=== PATIENT | female | born 1995 | race Hispanic/Latino ===

== ENCOUNTER 2020-04-13 07:05 | Emergency (ER) | payer OTHER ==
[~2020-04-13] VITALS: Ht 152.4 cm; Wt 74.8 kg
[~2020-04-13 07:05] MED LIST: IBUPROFEN200 MG PO; Naproxen; Z.0.AMITRIPTYLINE H1
[2020-04-13] MEDS ORDERED: KETOROLAC TROMETHAMINE 60 MG/2 ML VIAL IM ONE (07:30)
[2020-04-13] MEDS ORDERED: KETOROLAC TROMETHAMINE 60 MG/2 ML VIAL ONE (07:39)
[2020-04-13] MEDS ORDERED: PREDNISONE 20 MG TAB PO ONE (08:00)
[2020-04-13] MEDS ORDERED: CYCLOBENZAPRINE5 MG PO (08:06)
[2020-04-13] MEDS ORDERED: PREDNISONE20 MG PO (08:06)
[2020-04-13] MEDS ORDERED: PREDNISONE 20 MG TAB ONE (08:17)
== END 2020-04-13 08:15 | disposition home or self-care (01) ==
LOC: FSED 07:30
DX: S30.0XXA Contusion of lower back and pelvis, initial encounter (principal); S39.012A Strain of muscle, fascia and tendon of lower back, initial encounter; W00.0XXA Fall on same level due to ice and snow, initial encounter; Y93.01 Activity, walking, marching and hiking; Y92.008 Other place in unspecified non-institutional (private) residence as the place of occurrence of the external cause
CPT/HCPCS: 72220; 99283; J1885; J7512

== ENCOUNTER 2020-12-18 08:04 | Emergency (ER) | payer OTHER ==
[~2020-12-18] VITALS: Ht 152.4 cm; Wt 79.4 kg
[~2020-12-18 08:04] MED LIST changes: +CYCLOBENZAPRINE5 MG PO; +PREDNISONE20 MG PO
[2020-12-18] MEDS ORDERED: SODIUM CHLORIDE 0.9% 1000ML 1,000 ML IV STA (08:12)
[2020-12-18] MEDS ORDERED: ACETAMINOPHEN 325 MG TAB PO ONE (08:15)
[2020-12-18] MEDS ORDERED: ONDANSETRON HCL INJ 2MG/ML 2ML 2 MG/ML VIAL IV ONE (08:15)
[2020-12-18] MEDS ORDERED: FAMOTIDINE 20 MG/2 ML VIAL IV ONE (08:15)
[2020-12-18] MEDS ORDERED: KETOROLAC TROMETHAMINE 30 MG/ML VIAL IV ONE (08:15)
[2020-12-18] MEDS ORDERED: DEXAMETHASONE 10MG/ML PF INJ IV ONE (08:15)
[2020-12-18] MEDS ORDERED: KETOROLAC TROMETHAMINE 30 MG/ML VIAL ONE (08:29)
[2020-12-18] MEDS ORDERED: ZOFRAN4 MG PO (08:29)
[2020-12-18] MEDS ORDERED: THERAFLU FLU &1 EAC1 PO (08:29)
[2020-12-18] MEDS ORDERED: CEFDINIR300 MG PO (08:29)
[2020-12-18] MEDS ORDERED: DEXAMETHASONE SOD PHOS INJ 4 MG/ML SDV ONE (08:29)
[2020-12-18] MEDS ORDERED: SODIUM CHLORIDE 0.9% 1000ML 1,000 ML ONE (08:29)
[2020-12-18] MEDS ORDERED: CEFTRIAXONE 1 GM VIAL ONE (08:30)
[2020-12-18] MEDS ORDERED: CEFTRIAXONE 1 GM in SODIUM CHLORIDE 0.9% 50ML 50 ML IV ONE (08:30)
[2020-12-18] MEDS ORDERED: CEFTRIAXONE 1 GM VIAL IV ONE (08:30)
== END 2020-12-18 09:25 | disposition home or self-care (01) ==
LOC: FSED 08:15
DX: R05.9 Cough, unspecified (principal); J02.9 Acute pharyngitis, unspecified; J06.9 Acute upper respiratory infection, unspecified; Z20.822 Contact with and (suspected) exposure to COVID-19
CPT/HCPCS: 80053; 85025; 96374; 96375; 96376; 99283; J0696; J1100; J1885; J2405; J7030; U0002